=== PATIENT | female | born 1965 | race American Indian/Alaskan Native ===

== ENCOUNTER 2018-11-02 21:27 | Inpatient (IN) | payer MEDICAID ==
--- NOTE | 2018-11-02 21:46 | Emergency Department Report ---
Blank Doc - Documentation Documentation: 53 y/o female c/o sob times 2 day. Hx/o COPD
[2018-11-02 22:19] LABS: Basophils # (Auto) 0.1 K/mm3 (0.0-0.1); Basophils % (Auto) 1.5 % (0.0-1.8); Eosinophils # (Auto) 0.1 K/mm3 (0.0-0.4); Eosinophils % (Auto) 3.2 % (0.0-4.3); Hematocrit 48.4 % (30.3-42.9); Hemoglobin 15.4 gm/dl (10.1-14.3); Lymphocytes # (Auto) 1.7 K/mm3 (1.2-5.4); Lymphocytes % (Auto) 42.8 % (13.4-35.0); Mean Corpuscular HGB Conc 32 % (30-34); Mean Corpuscular Volume 100 fl (79-97); Monocytes # (Auto) 0.3 K/mm3 (0.0-0.8); Monocytes % (Auto) 7.9 % (0.0-7.3); Platelet Count 111 K/mm3 (140-440); Red Blood Count 4.85 M/mm3 (3.65-5.03); Red Cell Distribution Width 15.9 % (13.2-15.2)
--- NOTE | 2018-11-02 22:22 | XRay Report ---
PROCEDURE: XR CHEST ROUTINE 2V TECHNIQUE: PA and lateral chest radiographs were obtained. HISTORY: sob COMPARISONS: Normal 6 2017. FINDINGS: Heart: Grossly cardiomegaly is again noted. Mediastinum/Vessels: Pulmonary venous congestion is identified there are no infiltrates or mass lesio ns. Pleural spaces are clear.. Lungs/Pleural space: Normal. Bony thorax: No acute osseous abnormality. IMPRESSION: Gross cardiomegaly with pulmonary venous congestion No acute pulmonary process. This document is electronically signed by Russell Walters MD., November 02 2018 10:20:54 PM ET
[2018-11-02 22:25] LABS: Alanine Aminotransferase 8 units/L (7-56); Albumin 2.5 g/dL (3.9-5); BUN/Creatinine Ratio 14; Blood Urea Nitrogen 15 mg/dL (7-17); Calcium 8.7 mg/dL (8.4-10.2); Hemolysis Index 46
[2018-11-03] MEDS ORDERED: ROXICODONE ONE (00:40)
[2018-11-03] MEDS ORDERED: LASIX IV ONE (01:07)
[2018-11-03] MEDS ORDERED: APRESOLINE IV ONE (01:07)
[2018-11-03] MEDS ORDERED: K-DUR PO ONE (01:08)
--- NOTE | 2018-11-03 01:09 | Emergency Department Report ---
ED General Adult HPI - General Chief complaint: Dyspnea/Respdistress Stated complaint: SOB,COPD,HIGH B/P, RETAINING WATER Time Seen by Provider: 11/03/18 00:47 Source: patient, RN notes reviewed, old records reviewed Mode of arrival: Ambulatory Limitations: Physical Limitation - History of Present Illness Initial comments: Primary care DrLuis Alberto: Cannot remember the name Pulmonology: Cannot remember the name Cardiology: Dr. Francisco Dove Past medical history: Chronic respiratory failure, COPD, on home oxygen, congestive heart failure, ejection fraction 40-45%, permanent atrial fibrillation, currently on systemic anticoagulation;xarelto This is a 53-year-old female. The patient presents to the emergency room with a complaint of painless shortness of breath and lower extremity swelling. The symptoms; going on for the past few days. They're constant. They worse with physical exertion. The decreased with rest. The patient denies recent travel, surgeries, hospitalization, immobilization. She reports that her symptoms today feel similar to prior episodes of congestive heart failure exacerbation. The patient denies dietary indiscretions. She reports compliance with medications. In the emergency room, found to have crackles, rales, lower extremity edema, jugular venous distention, laboratory and x-ray findings suggestive of congestive heart failure exacerbation. Patient will be admitted to the medical service for blood pressure control, and diuresis. Discussed this with the patient, and she is amenable to hospitalization. Discussed with Hospital physician, Dr. Dove, who has accepted the patient to the medical service. Discussed with covering flow coordinator, Dr. Agnisezka Meier, who agrees to follow in consultation. -: Gradual Location: left, right, lower extremity Radiation: non-radiation Severity scale (0 -10): 0 Consistency: other Improves with: rest Worsens with: movement - Related Data Home Medications Medication Instructions Recorded Confirmed Last Taken ALBUTEROL NEB's [Proventil 0.083% 1 inhalation PRN 01/12/18 11/03/18 05/13/18 05:00 NEBS] Previous Rx's Medication Instructions Recorded Last Taken Type Carvedilol [Coreg] 12.5 mg PO Q12HR #60 tablet 01/14/18 Unknown Rx Furosemide [Lasix TAB] 40 mg PO QDAY #30 tablet 01/14/18 Unknown Rx Levothyroxine [Synthroid] 150 mcg PO QAM #30 tablet 01/14/18 Unknown Rx Lisinopril [Zestril] 40 mg PO DAILY #30 tablet 01/14/18 Unknown Rx Potassium Chloride 10 meq PO QDAY #30 capsule.er 01/14/18 Unknown Rx ProAir HFA Inhaler 2 inhalation PO DAILY #1 01/14/18 Unknown Rx Rivaroxaban [Xarelto] 15 mg PO DAILY #30 tablet 01/14/18 Unknown Rx Simvastatin [Zocor] 40 mg PO DAILY #30 tablet 01/14/18 Unknown Rx ALBUTEROL Inhaler (OR & NICU) 4 puff IH QID PRN #1 inhalation 05/14/18 Unknown Rx [ProAir HFA Inhaler] Allergies Allergy/AdvReac Type Severity Reaction Status Date / Time No Known Allergies Allergy Verified 01/12/18 06:40 ED Review of Systems ROS: Stated complaint: SOB,COPD,HIGH B/P, RETAINING WATER Other details as noted in HPI Constitutional: malaise. denies: fever ENT: congestion Respiratory: shortness of breath, wheezing Cardiovascular: edema. denies: chest pain Gastrointestinal: denies: abdominal pain Genitourinary: denies: dysuria Musculoskeletal: arthralgia Skin: denies: lesions Neurological: weakness Psychiatric: denies: anxiety ED Past Medical Hx - Past Medical History Previous Medical History?: Yes Hx Hypertension: Yes Hx Congestive Heart Failure: Yes Hx COPD: Yes Additional medical history: hyperthyroidism. afib - Surgical History Past Surgical History?: Yes Additional Surgical History: Pericardial window 2003 - Social History Smoking Status: Current Every Day Smoker Substance Use Type: None - Medications Home Medications: Home Medications Medication Instructions Recorded Confirmed Last Taken Type ALBUTEROL NEB's [Proventil 0.083% 1 inhalation PRN 01/12/18 11/03/18 05/13/18 05:00 History NEBS] Carvedilol [Coreg] 12.5 mg PO Q12HR #60 tablet 01/14/18 11/03/18 Unknown Rx Furosemide [Lasix TAB] 40 mg PO QDAY #30 tablet 01/14/18 11/03/18 Unknown Rx Levothyroxine [Synthroid] 150 mcg PO QAM #30 tablet 01/14/18 11/03/18 Unknown Rx Lisinopril [Zestril] 40 mg PO DAILY #30 tablet 01/14/18 11/03/18 Unknown Rx Potassium Chloride 10 meq PO QDAY #30 capsule.er 01/14/18 11/03/18 Unknown Rx ProAir HFA Inhaler 2 inhalation PO DAILY #1 01/14/18 11/03/18 Unknown Rx Rivaroxaban [Xarelto] 15 mg PO DAILY #30 tablet 01/14/18 11/03/18 Unknown Rx Simvastatin [Zocor] 40 mg PO DAILY #30 tablet 01/14/18 11/03/18 Unknown Rx ALBUTEROL Inhaler (OR & NICU) 4 puff IH QID PRN #1 inhalation 05/14/18 11/03/18 Unknown Rx [ProAir HFA Inhaler] ED Physical Exam - General Limitations: No Limitations General appearance: alert, in no apparent distress - Head Head exam: Present: atraumatic, normocephalic - Eye Eye exam: Present: normal appearance, EOMI. Absent: nystagmus - ENT ENT exam: Present: normal exam, normal orophraynx, mucous membranes moist, normal external ear exam - Neck Neck exam: Present: normal inspection, full ROM, other (jugular venous distention is noted bilaterally). Absent: tenderness, meningismus - Respiratory Respiratory exam: Present: respiratory distress, rales - Cardiovascular Cardiovascular Exam: Present: regular rate, irregular rhythm, normal heart sounds. Absent: bradycardia, tachycardia, diastolic murmur, rubs, gallop - GI/Abdominal GI/Abdominal exam: Present: soft. Absent: distended, tenderness, guarding, rebound, rigid, pulsatile mass - Extremities Exam Extremities exam: Present: normal inspection, full ROM, pedal edema, other (2+ pulses noted in the bilateral upper, lower extremities. Compartments soft. No long bony tenderness. The pelvis is stable.). Absent: calf tenderness - Back Exam Back exam: Present: normal inspection, full ROM. Absent: tenderness, CVA tenderness (R), CVA tenderness (L), paraspinal tenderness, vertebral tenderness - Neurological Exam Neurological exam: Present: alert, other (Extraocular movements intact. Tongue midline. No facial droop. Facial sensation intact to light touch in the V1, V2, V3 distribution bilaterally. 5 and 5 strength in 4 extremities.. Sensation is intact to light touch in 4 extremities.). Absent: motor sensory deficit - Psychiatric Psychiatric exam: Present: normal affect, normal mood - Skin Skin exam: Present: warm, dry, intact, normal color. Absent: rash ED Course Vital Signs 11/02/18 11/02/18 11/03/18 21:32 21:41 00:30 Temperature 97.5 F L 97.5 F L 97.8 F Pulse Rate 74 75 76 Respiratory 16 20 22 Rate Blood Pressure 184/127 Blood Pressure 184/127 185/125 [Left] O2 Sat by Pulse 93 93 98 Oximetry 11/03/18 11/03/18 11/03/18 01:00 01:32 01:38 Temperature Pulse Rate 76 76 Respiratory 22 22 Rate Blood Pressure 185/125 Blood Pressure 170/121 [Left] O2 Sat by Pulse 98 98 Oximetry ED Medical Decision Making - Lab Data Result diagrams: 11/02/18 21:55 11/02/18 21:55 Vital Signs 11/02/18 11/02/18 11/03/18 21:32 21:41 00:30 Temperature 97.5 F L 97.5 F L 97.8 F Pulse Rate 74 75 76 Respiratory 16 20 22 Rate Blood Pressure 184/127 Blood Pressure 184/127 185/125 [Left] O2 Sat by Pulse 93 93 98 Oximetry Labs 11/02/18 11/02/18 21:55 21:55 WBC 4.0 L RBC 4.85 Hgb 15.4 H Hct 48.4 H MCV 100 H MCH 32 MCHC 32 RDW 15.9 H Plt Count 111 L Lymph % (Auto) 42.8 H [place] % (Auto) 7.9 H Eos % (Auto) 3.2 Baso % (Auto) 1.5 Lymph # 1.7 [place] # 0.3 Eos # 0.1 Baso # 0.1 Seg Neutrophils % 44.6 Seg Neutrophils # 1.8 Sodium 133 L Potassium 3.4 L Chloride 92.8 L Carbon Dioxide 30 Anion Gap 14 BUN 15 Creatinine 1.1 Estimated GFR > 60 BUN/Creatinine Ratio 14 Glucose 104 H Calcium 8.7 Total Bilirubin 1.30 H AST 24 ALT 8 Alkaline Phosphatase 81 NT-Pro-B Natriuret Pep 4998 H Total Protein 6.2 L Albumin 2.5 L Albumin/Globulin Ratio 0.7 - EKG Data -: EKG Interpreted by Ak - EKG Data When compared to previous EKG there are: no significant change 11/03/18 02:18 This EKG shows atrial fibrillation, left axis deviation, 67 bpm, left anterior fascicular block, QTC prolonged, premature ventricular contractions, left ventricular hypertrophy, this is an abnormal EKG, this is not consistent with ST elevation myocardial infarction, appears to be unchanged from a prior EKG from May 2008 - Radiology Data Radiology results: report reviewed, image reviewed X-ray the chest shows congestive heart failure, pulmonary vascular congestion, enlarged cardiac silhouette - Medical Decision Making Differential diagnosis, including not limited to, congestive heart failure exacerbation, fluid overload Assessment and plan: 53-year-old female on systemic anticoagulation, with physical clinical and laboratory evidence of decompensated congestive heart failure. Requires hospitalization for diuresis, and medication optimization. Critical Care Time: Yes Critical care time in (mins) excluding proc time.: 35 Critical care attestation.: If time is entered above; I have spent that time in minutes in the direct care of this critically ill patient, excluding procedure time. ED Disposition Clinical Impression: CHF exacerbation, Hypokalemia Disposition: OP ADMIT IP TO THIS HOSP Is pt being admited?: Yes Condition: Good Referrals: PRIMARY CARE, [Primary Care Provider] - 3-5 Days
[2018-11-03] MEDS ORDERED: TYLENOL PO PRN (01:53)
[2018-11-03] MEDS ORDERED: SODIUM CHLORIDE FLUSH SYRINGE 10 ML IV PRN (01:53)
[2018-11-03] MEDS ORDERED: ZOFRAN IV PRN (01:53)
[2018-11-03] MEDS ORDERED: PROAIR IH PRN (01:55)
--- NOTE | 2018-11-03 01:55 | History and Physical Report ---
History of Present Illness Date of examination: 11/03/18 History of present illness: 53-year-old woman with a history of CHF, hypertension, COPD, hypothyroidism, A. fib, hyperlipidemia comes emergency room with complaints of shortness of breath, orthopnea, lower extremity edema 2 days. Noncompliant with fluid restriction Review of systems Constitutional: no weight loss, chills, fever Ears, eyes, nose, mouth and throat: no nasal congestion, no nasal discharge, no sinus pressure, no vision change, no red eye. Neck: No neck pain or rigidity. Cardiovascular: no palpitations, chest pain Respiratory: no cough Gastrointestinal: no hematochezia, abdominal pain Genitourinary : no frequency , no hematuria Musculoskeletal: no joint swelling or muscle ache Integumentary: no rash, no pruritis Neurological: no parathesias, no focal weakness Endocrine: no cold or heat intolerance, no polyuria or polydipsia Hematologic/Lymphatic: no easy bruising, no easy bleeding, no gland swelling Allergic/Immunologic: no urticaria, no angioedema. PAST MEDICAL HISTORY:CHF, hypertension, COPD, hypothyroidism, A. fib, hyperlipidemia PAST SURGICAL HISTORY: None SOCIAL HISTORY: Denies alcohol, drugs, tobacco FAMILY HISTORY: Hypertension Medications and Allergies Allergies Allergy/AdvReac Type Severity Reaction Status Date / Time No Known Allergies Allergy Verified 01/12/18 06:40 Home Medications Medication Instructions Recorded Confirmed Last Taken Type Carvedilol [Coreg] 12.5 mg PO Q12HR #60 tablet 01/14/18 11/03/18 Unknown Rx Lisinopril [Zestril] 40 mg PO DAILY #30 tablet 01/14/18 11/03/18 Unknown Rx Potassium Chloride 10 meq PO QDAY #30 capsule.er 01/14/18 11/03/18 Unknown Rx Simvastatin [Zocor] 40 mg PO DAILY #30 tablet 01/14/18 11/03/18 Unknown Rx ALBUTEROL Inhaler (OR & NICU) 4 puff IH QID PRN #1 inhalation 11/05/18 Unknown Rx [ProAir HFA Inhaler] ALBUTEROL NEB's [Proventil 0.083% 2.5 mg IH Q4HRT PRN #30 nebu 11/05/18 Unknown Rx NEBS] Acetaminophen [Acetaminophen TAB] 650 mg PO Q4H PRN #15 tablet 11/05/18 Unknown Rx Aspirin [Aspirin BABY CHEW TAB] 81 mg PO QDAY #20 tab.chew 11/05/18 Unknown Rx Furosemide [Lasix TAB] 40 mg PO BID #60 tablet 11/05/18 Unknown Rx Levothyroxine [Synthroid] 150 mcg PO QAM #30 tablet 11/05/18 Unknown Rx Potassium Chloride [K-Dur] 40 meq PO DAILY #30 tablet 11/05/18 Unknown Rx Rivaroxaban [Xarelto] 15 mg PO DAILY #30 tablet 11/05/18 Unknown Rx Spironolactone [Aldactone] 25 mg PO QDAY #30 tablet 11/05/18 Unknown Rx hydrALAZINE [Apresoline TAB] 25 mg PO Q8HR #30 tablet 11/05/18 Unknown Rx Exam - Physical Exam Narrative exam: General Apperance: The patient lying in bed, breathing comfortable HEENT: Normocephalic, atraumatic. Pupils equally round and reactive to light, EOMI, no sclericterus or JVD or thyromegaly or nodule. , no carotid bruit, mucous membranes moist, no exudate or erythema Heart: S1-S2, regular is rhythm Lungs: Crackles bilaterally, breathing comfortable Abdomen: Positive bowel sounds, soft, nontender, nondistended, no organomegaly Extremities: + edema, no cyanosis clubbing Skin: no rash, nodule, warm and dry Neuro: cranial nerves 2-12 intact, speech is fluent, motor/sensory intact - Constitutional Vitals: Temp Pulse Resp BP Pulse Ox 97.8 F 76 22 170/121 98 11/03/18 00:30 11/03/18 01:38 11/03/18 01:38 11/03/18 01:38 11/03/18 01:38 Results - Labs CBC & Chem 7: 11/05/18 06:03 11/05/18 06:03 Labs: Abnormal lab results 11/02/18 11/02/18 Range/Units 21:55 21:55 WBC 4.0 L (4.5-11.0) K/mm3 Hgb 15.4 H (10.1-14.3) gm/dl Hct 48.4 H (30.3-42.9) % MCV 100 H (79-97) fl RDW 15.9 H (13.2-15.2) % Plt Count 111 L (140-440) K/mm3 Lymph % (Auto) 42.8 H (13.4-35.0) % [place] % (Auto) 7.9 H (0.0-7.3) % Sodium 133 L (137-145) mmol/L Potassium 3.4 L (3.6-5.0) mmol/L Chloride 92.8 L (98-107) mmol/L Glucose 104 H (65-100) mg/dL Total Bilirubin 1.30 H (0.1-1.2) mg/dL NT-Pro-B Natriuret Pep 4998 H (0-900) pg/mL Total Protein 6.2 L (6.3-8.2) g/dL Albumin 2.5 L (3.9-5) g/dL - Imaging and Cardiology EKG: image reviewed Chest x-ray: report reviewed Assessment and Plan Assessment Acute on chronic diastolic CHF Hypertension COPD Hypothyroidism A. fib Hyperlipidemia Plan Admit to medicine Day received IV Lasix Continue beta ave, ARIANNA inhibitor, aspirin Check cardiac enzymes, echo, consult cardiology Continue Procrit outpatient medications DVT prophylaxis /xarelto
[2018-11-03] MEDS ORDERED: HABITROL TD ONE (01:57)
[2018-11-03] MEDS ORDERED: PROVENTIL IH PRN (02:12)
[2018-11-03 02:39] LABS: INR 1.18 (0.87-1.13)
[2018-11-03 02:40] LABS: Partial Thromboplastin Time 30.1 Sec. (24.2-36.6)
[2018-11-03 02:46] LABS: Creatine Kinase MB 3.3 ng/mL (0.0-4.0)
[2018-11-03 03:17] LABS: Chol/HDL Ratio 3.04 %
[2018-11-03] MEDS: SYNTHROID PO SCH (06:16)
[2018-11-03] MEDS: LASIX IV SCH ×2 (06:22→17:58)
[2018-11-03 08:23] LABS: Creatine Kinase MB 4.4 ng/mL (0.0-4.0)
[2018-11-03] MEDS: PROVENTIL IH SCH ×2 (08:37→12:32)
--- NOTE | 2018-11-03 09:40 | Consultation ---
History of Present Illness Consult date: 11/03/18 Consult reason: congestive heart failure History of present illness: This is a 53 year old woman with a history of nonischemic cardiomyopathy dating back to 2 years ago while living in [place]. She is followed on a routine basis by Dr Francisco Dove with [facility]. Her latest echocardiogram done within the last year reports an ejection fraction 40-45%. She has permanent atrial fibrillation and is anticoagulated with Xarelto for CVA prophylaxis. Co- morbidities includes hypertension and COPD. Patient presented with complaints of shortness of breath, lower extremity edema admitted with CHF exacerbation. Patient admits to dietary indiscretions. She has no chest pain, dizziness or palpitations. Her ECG is atrial fibrillation with a well controlled ventricular rate. Cardiac consultation has been requested for CHF management. Medications and Allergies Allergies Allergy/AdvReac Type Severity Reaction Status Date / Time No Known Allergies Allergy Verified 01/12/18 06:40 Home Medications Medication Instructions Recorded Confirmed Last Taken Type ALBUTEROL NEB's [Proventil 0.083% 1 inhalation PRN 01/12/18 11/03/18 05/13/18 05:00 History NEBS] Carvedilol [Coreg] 12.5 mg PO Q12HR #60 tablet 01/14/18 11/03/18 Unknown Rx Furosemide [Lasix TAB] 40 mg PO QDAY #30 tablet 01/14/18 11/03/18 Unknown Rx Levothyroxine [Synthroid] 150 mcg PO QAM #30 tablet 01/14/18 11/03/18 Unknown Rx Lisinopril [Zestril] 40 mg PO DAILY #30 tablet 01/14/18 11/03/18 Unknown Rx Potassium Chloride 10 meq PO QDAY #30 capsule.er 01/14/18 11/03/18 Unknown Rx ProAir HFA Inhaler 2 inhalation PO DAILY #1 01/14/18 11/03/18 Unknown Rx Rivaroxaban [Xarelto] 15 mg PO DAILY #30 tablet 01/14/18 11/03/18 Unknown Rx Simvastatin [Zocor] 40 mg PO DAILY #30 tablet 01/14/18 11/03/18 Unknown Rx ALBUTEROL Inhaler (OR & NICU) 4 puff IH QID PRN #1 inhalation 05/14/18 11/03/18 Unknown Rx [ProAir HFA Inhaler] Active Meds: Active Medications Acetaminophen (Tylenol) 650 mg PO Q4H PRN PRN Reason: Pain MILD(1-3)/Fever >100.5/JEFFERS Albuterol (Proventil) 2.5 mg IH Q4HRT PRN PRN Reason: Shortness Of Breath Albuterol (Proventil) 2.5 mg IH DAILY [facility] Last Admin: 11/03/18 08:37 Dose: 2.5 mg Documented by: Aspirin (Baby Aspirin) 81 mg PO QDAY [facility] Carvedilol (Coreg) 12.5 mg PO Q12HR [facility] Furosemide (Lasix) 40 mg IV BID@0600,1800 [facility] Last Admin: 11/03/18 06:22 Dose: 40 mg Documented by: Hydralazine HCl (Apresoline) 10 mg IV Q4H PRN PRN Reason: Blood Pressure Levothyroxine Sodium (Synthroid) 150 mcg PO QAM@0600 [facility] Last Admin: 11/03/18 06:16 Dose: 150 mcg Documented by: Lisinopril (Zestril) 40 mg PO DAILY [facility] Ondansetron HCl (Zofran) 4 mg IV Q8H PRN PRN Reason: Nausea And Vomiting Pravastatin Sodium (Pravachol) 80 mg PO QHS [facility] Rivaroxaban (Xarelto) 15 mg PO DAILY [facility]; Protocol Sodium Chloride (Sodium Chloride Flush Syringe 10 Ml) 10 ml IV BID [facility] Sodium Chloride (Sodium Chloride Flush Syringe 10 Ml) 10 ml IV PRN PRN PRN Reason: LINE FLUSH Physical Examination Vital Signs Temp Pulse Resp BP Pulse Ox 97.5 F L 74 16 184/127 93 11/02/18 21:32 11/02/18 21:32 11/02/18 21:32 11/02/18 21:32 11/02/18 21:32 General appearance: no acute distress HEENT: Positive: PERRL Neck: Positive: trachea midline Cardiac: Positive: irregularly irregular Lungs: Positive: Decreased Breath Sounds Neuro: Positive: Grossly Intact Extremities: Present: +2 Edema Results 11/02/18 21:55 11/02/18 21:55 Cardiac Enzymes 11/02/18 11/03/18 11/03/18 Range/Units 21:55 02:02 07:54 AST 24 (5-40) units/L CK-MB (CK-2) 3.3 4.4 H (0.0-4.0) ng/mL Coagulation 11/03/18 Range/Units 02:02 PT 15.8 H (12.2-14.9) Sec. INR 1.18 H (0.87-1.13) APTT 30.1 (24.2-36.6) Sec. Lipids 11/03/18 Range/Units 02:02 Triglycerides 146 (2-149) mg/dL Cholesterol 131 (50-199) mg/dL HDL Cholesterol 43 (40-59) mg/dL Cholesterol/HDL Ratio 3.04 % CBC 11/02/18 Range/Units 21:55 WBC 4.0 L (4.5-11.0) K/mm3 RBC 4.85 (3.65-5.03) M/mm3 Hgb 15.4 H (10.1-14.3) gm/dl Hct 48.4 H (30.3-42.9) % Plt Count 111 L (140-440) K/mm3 Lymph # 1.7 (1.2-5.4) K/mm3 [place] # 0.3 (0.0-0.8) K/mm3 Eos # 0.1 (0.0-0.4) K/mm3 Baso # 0.1 (0.0-0.1) K/mm3 Comprehensive Metabolic Panel 11/02/18 Range/Units 21:55 Sodium 133 L (137-145) mmol/L Potassium 3.4 L (3.6-5.0) mmol/L Chloride 92.8 L (98-107) mmol/L Carbon Dioxide 30 (22-30) mmol/L BUN 15 (7-17) mg/dL Creatinine 1.1 (0.7-1.2) mg/dL Glucose 104 H (65-100) mg/dL Calcium 8.7 (8.4-10.2) mg/dL AST 24 (5-40) units/L ALT 8 (7-56) units/L Alkaline Phosphatase 81 (35-129) units/L Total Protein 6.2 L (6.3-8.2) g/dL Albumin 2.5 L (3.9-5) g/dL Assessment and Plan Acute systolic heart failure s/t noncompliance with dietary indiscretions Nonischemic cardiomyopathy pt reports a [facility] 2018 while living in [facility], that did not require coronary intervention Chronic Afib on xarelto for oral anticoagulation Hx of COPD Hypertension Tobacco abuse Recommendations: Sodium/fluid restrictions. Daily weight. Echocardiogram for LVEF reassessment. Medical therapy for systolic heart failure to include IV diuretics, afterload reduction agents, beta blockers and aldactone. Continue rate controlling agents and Xarelto for permanent atrial fibrillation.
[2018-11-03] MEDS ORDERED: NON-FORMULARY (Simvastatin [Zocor] 40 MG) PO SCH (10:00)
[2018-11-03] MEDS ORDERED: LOVENOX SUB-Q SCH (10:00)
[2018-11-03] MEDS ORDERED: PROAIR PO SCH (10:00)
[2018-11-03] MEDS: BABY ASPIRIN PO SCH (10:13)
[2018-11-03] MEDS: XARELTO PO SCH (10:13)
[2018-11-03] MEDS: SODIUM CHLORIDE FLUSH SYRINGE 10 ML IV SCH ×2 (10:18→22:03)
[2018-11-03] MEDS: COREG PO SCH ×2 (10:20→22:01)
[2018-11-03] MEDS: ZESTRIL PO SCH (10:20)
[2018-11-03] MEDS: ALDACTONE PO SCH (11:00)
--- NOTE | 2018-11-03 11:14 | Progress Note ---
<SHANIA SEALS - Last Filed: 11/03/18 11:14> Assessment and Plan Assessment and plan: Ms. Barrera is 53 year old -[place] woman with history of systolic heart failure, nonischemic cardiomyopath, hypertension, COPD, hypothyroidism, A. fibrate controlled on Xarelto, and hyperlipidemia who presented to [facility] ED on 11/02 with c/o shortness of breath, orthopnea, lower extremity edema 2 days. She is followed on a routine basis by Dr Francisco Dove with [facility]. Her most recent echocardiogram done within the last year reports ejection fraction 40-45%. She was admitted to the Telemetry floor. Acute exacerbation of systolic heart failure Continue diuresis with IV Lasix 40mg BID Start Potassium replace 40Meq daily Monitor electrolytes Echo- pending Cardiology following Follows Dr Francisco Dove with [facility] as outpatient Nonischemic cardiomyopathy pt reports a [facility] 2018 while living in [facility]; no coronary intervention was re quired Follows Dr Francisco Dove with [facility] as outpatient Atrial fibrillation Rate controlled on Xarelto Follows Dr Francisco Dove with [facility] as outpatient Hypertension Monitor BP On Coreg 12.5 BID, and Aldactone 25mg daily Hx COPD Albuterol nebs prn Hypothyroidism On Synthroid 150mcg daily TSH and Free T4- pending Tobacco abuse Continue to encourage cessation On nicotine patch DVT PPX AC Xarelto History Interval history: Ms. Barrera is seen today on the Telemetry floor. Pt reports that her breathing and edema has slightly improved. There were no acute overnight events. Hospitalist Physical - Constitutional Vitals: Temp Pulse Resp BP Pulse Ox 98.2 F 60 20 170/108 92 11/03/18 08:16 11/03/18 11:00 11/03/18 08:15 11/03/18 11:00 11/03/18 08:15 General appearance: Present: no acute distress, mild distress - EENT Eyes: Present: PERRL, EOM intact ENT: hearing intact, clear oral mucosa, dentition normal - Neck Neck: Present: supple, normal ROM - Respiratory Respiratory effort: labored Respiratory: bilateral: rales (scattered crackles to base bilaterally) - Cardiovascular Heart rate: 60 (bpm) Rhythm: irregularly irregular Heart Sounds: Present: S1 & S2 - Extremities Extremities: pulses intact Extremity abnormal: edema - Peripheral Assessment Bilateral Lower Extremity Edema Degree: 2+ Capillary Refill: < 3 seconds Skin Temperature: Warm Peripheral Pulses: within normal limits - Abdominal General gastrointestinal: soft, non-tender, normal bowel sounds - Integumentary Integumentary: Present: warm, dry - Psychiatric Psychiatric: appropriate mood/affect, cooperative - Neurologic Neurologic: moves all extremities - Allied Health Allied health notes reviewed: nursing Results - Labs CBC & Chem 7: 11/02/18 21:55 11/02/18 21:55 Labs: Laboratory Last Values WBC 4.0 K/mm3 (4.5-11.0) L 11/02/18 21:55 RBC 4.85 M/mm3 (3.65-5.03) 11/02/18 21:55 Hgb 15.4 gm/dl (10.1-14.3) H 11/02/18 21:55 Hct 48.4 % (30.3-42.9) H 11/02/18 21:55 MCV 100 fl (79-97) H 11/02/18 21:55 MCH 32 pg (28-32) 11/02/18 21:55 MCHC 32 % (30-34) 11/02/18 21:55 RDW 15.9 % (13.2-15.2) H 11/02/18 21:55 Plt Count 111 K/mm3 (140-440) L 11/02/18 21:55 Lymph % (Auto) 42.8 % (13.4-35.0) H 11/02/18 21:55 [place] % (Auto) 7.9 % (0.0-7.3) H 11/02/18 21:55 Eos % (Auto) 3.2 % (0.0-4.3) 11/02/18 21:55 Baso % (Auto) 1.5 % (0.0-1.8) 11/02/18 21:55 Lymph # 1.7 K/mm3 (1.2-5.4) 11/02/18 21:55 [place] # 0.3 K/mm3 (0.0-0.8) 11/02/18 21:55 Eos # 0.1 K/mm3 (0.0-0.4) 11/02/18 21:55 Baso # 0.1 K/mm3 (0.0-0.1) 11/02/18 21:55 Seg Neutrophils % 44.6 % (40.0-70.0) 11/02/18 21:55 Seg Neutrophils # 1.8 K/mm3 (1.8-7.7) 11/02/18 21:55 PT 15.8 Sec. (12.2-14.9) H 11/03/18 02:02 INR 1.18 (0.87-1.13) H 11/03/18 02:02 APTT 30.1 Sec. (24.2-36.6) 11/03/18 02:02 Sodium 133 mmol/L (137-145) L 11/02/18 21:55 Potassium 3.4 mmol/L (3.6-5.0) L 11/02/18 21:55 Chloride 92.8 mmol/L (98-107) L 11/02/18 21:55 Carbon Dioxide 30 mmol/L (22-30) 11/02/18 21:55 Anion Gap 14 mmol/L 11/02/18 21:55 BUN 15 mg/dL (7-17) 11/02/18 21:55 Creatinine 1.1 mg/dL (0.7-1.2) 11/02/18 21:55 Estimated GFR > 60 ml/min 11/02/18 21:55 BUN/Creatinine Ratio 14 % 11/02/18 21:55 Glucose 104 mg/dL (65-100) H 11/02/18 21:55 Calcium 8.7 mg/dL (8.4-10.2) 11/02/18 21:55 Magnesium 1.70 mg/dL (1.7-2.3) 11/03/18 02:02 Total Bilirubin 1.30 mg/dL (0.1-1.2) H 11/02/18 21:55 AST 24 units/L (5-40) 11/02/18 21:55 ALT 8 units/L (7-56) 11/02/18 21:55 Alkaline Phosphatase 81 units/L (35-129) 11/02/18 21:55 Total Creatine Kinase 126 units/L (30-135) 11/03/18 07:54 CK-MB (CK-2) 4.4 ng/mL (0.0-4.0) H 11/03/18 07:54 CK-MB (CK-2) Rel Index 3.4 (0-4) 11/03/18 07:54 Troponin T 0.022 ng/mL (0.00-0.029) 11/03/18 07:54 NT-Pro-B Natriuret Pep 4998 pg/mL (0-900) H 11/02/18 21:55 Total Protein 6.2 g/dL (6.3-8.2) L 11/02/18 21:55 Albumin 2.5 g/dL (3.9-5) L 11/02/18 21:55 Albumin/Globulin Ratio 0.7 % 11/02/18 21:55 Triglycerides 146 mg/dL (2-149) 11/03/18 02:02 Cholesterol 131 mg/dL (50-199) 11/03/18 02:02 LDL Cholesterol Direct 75 mg/dL (50-130) 11/03/18 02:02 HDL Cholesterol 43 mg/dL (40-59) 11/03/18 02:02 Cholesterol/HDL Ratio 3.04 % 11/03/18 02:02 Short CBC 11/02/18 Range/Units 21:55 WBC 4.0 L (4.5-11.0) K/mm3 Hgb 15.4 H (10.1-14.3) gm/dl Hct 48.4 H (30.3-42.9) % Plt Count 111 L (140-440) K/mm3 BMP 11/02/18 21:55 Sodium 133 L Potassium 3.4 L Chloride 92.8 L Carbon Dioxide 30 BUN 15 Creatinine 1.1 Glucose 104 H Calcium 8.7 Cardiac Enzymes 11/03/18 11/03/18 Range/Units 02:02 07:54 Total Creatine Kinase 116 126 (30-135) units/L CK-MB (CK-2) 3.3 4.4 H (0.0-4.0) ng/mL Troponin T 0.031 H 0.022 (0.00-0.029) ng/mL Liver Function 11/02/18 Range/Units 21:55 Total Bilirubin 1.30 H (0.1-1.2) mg/dL AST 24 (5-40) units/L ALT 8 (7-56) units/L Alkaline Phosphatase 81 (35-129) units/L Albumin 2.5 L (3.9-5) g/dL Active Medications - Current Medications Current Medications: Generic Name Dose Route Start Last Admin Trade Name Freq PRN Reason Stop Dose Admin Acetaminophen 650 mg 11/03/18 01:53 Tylenol PO Q4H PRN Pain MILD(1-3)/Fever >100.5/JEFFERS Albuterol 2.5 mg 11/03/18 02:12 Proventil IH Q4HRT PRN Shortness Of Breath Albuterol 2.5 mg 11/03/18 10:00 11/03/18 08:37 Proventil IH 2.5 mg DAILY ELÍAS Administration Aspirin 81 mg 11/03/18 10:00 11/03/18 10:13 Baby Aspirin PO 81 mg QDAY ELÍAS Administration Carvedilol 12.5 mg 11/03/18 10:00 11/03/18 10:20 Coreg PO 12.5 mg Q12HR ELAÍS Administration Furosemide 40 mg 11/03/18 06:00 11/03/18 06:22 Lasix IV 40 mg BID@0600,1800 ELÍAS Administration Hydralazine HCl 10 mg 11/03/18 08:49 Apresoline IV Q4H PRN Blood Pressure Levothyroxine Sodium 150 mcg 11/03/18 06:00 11/03/18 06:16 Synthroid PO 150 mcg QAM@0600 ELÍAS Administration Lisinopril 40 mg 11/03/18 10:00 11/03/18 10:20 Zestril PO 40 mg DAILY ELÍSA Administration Ondansetron HCl 4 mg 11/03/18 01:53 Zofran IV Q8H PRN Nausea And Vomiting Pravastatin Sodium 80 mg 11/03/18 22:00 Pravachol PO QHS ELÍAS Rivaroxaban 15 mg 11/03/18 10:00 11/03/18 10:13 Xarelto PO 15 mg DAILY ELÍSA Administration Protocol Sodium Chloride 10 ml 11/03/18 10:00 11/03/18 10:18 Sodium Chloride Flush Syringe 10 Ml IV 10 ml BID ELÍAS Administration Sodium Chloride 10 ml 11/03/18 01:53 Sodium Chloride Flush Syringe 10 Ml IV PRN PRN LINE FLUSH Spironolactone 25 mg 11/03/18 11:00 11/03/18 11:00 Aldactone PO 25 mg QDAY ELÍAS Administration <BEATRIZ CLEARY R - Last Filed: 11/03/18 13:13> Assessment and Plan Assessment and plan: I saw and evaluated the patient. I agree with the findings and the plan of care as documented in the Nurse Practitioner's~note, with the following corrections and additions. Hospitalist Physical - Constitutional Vitals: Temp Pulse Resp BP Pulse Ox 98.2 F 60 20 170/108 92 11/03/18 08:16 11/03/18 11:00 11/03/18 08:47 11/03/18 11:00 11/03/18 08:37 Results - Labs CBC & Chem 7: 11/02/18 21:55 11/02/18 21:55 Labs: Laboratory Last Values WBC 4.0 K/mm3 (4.5-11.0) L 11/02/18 21:55 RBC 4.85 M/mm3 (3.65-5.03) 11/02/18 21:55 Hgb 15.4 gm/dl (10.1-14.3) H 11/02/18 21:55 Hct 48.4 % (30.3-42.9) H 11/02/18 21:55 MCV 100 fl (79-97) H 11/02/18 21:55 MCH 32 pg (28-32) 11/02/18 21:55 MCHC 32 % (30-34) 11/02/18 21:55 RDW 15.9 % (13.2-15.2) H 11/02/18 21:55 Plt Count 111 K/mm3 (140-440) L 11/02/18 21:55 Lymph % (Auto) 42.8 % (13.4-35.0) H 11/02/18 21:55 [place] % (Auto) 7.9 % (0.0-7.3) H 11/02/18 21:55 Eos % (Auto) 3.2 % (0.0-4.3) 11/02/18 21:55 Baso % (Auto) 1.5 % (0.0-1.8) 11/02/18 21:55 Lymph # 1.7 K/mm3 (1.2-5.4) 11/02/18 21:55 [place] # 0.3 K/mm3 (0.0-0.8) 11/02/18 21:55 Eos # 0.1 K/mm3 (0.0-0.4) 11/02/18 21:55 Baso # 0.1 K/mm3 (0.0-0.1) 11/02/18 21:55 Seg Neutrophils % 44.6 % (40.0-70.0) 11/02/18 21:55 Seg Neutrophils # 1.8 K/mm3 (1.8-7.7) 11/02/18 21:55 PT 15.8 Sec. (12.2-14.9) H 11/03/18 02:02 INR 1.18 (0.87-1.13) H 11/03/18 02:02 APTT 30.1 Sec. (24.2-36.6) 11/03/18 02:02 Sodium 133 mmol/L (137-145) L 11/02/18 21:55 Potassium 3.4 mmol/L (3.6-5.0) L 11/02/18 21:55 Chloride 92.8 mmol/L (98-107) L 11/02/18 21:55 Carbon Dioxide 30 mmol/L (22-30) 11/02/18 21:55 Anion Gap 14 mmol/L 11/02/18 21:55 BUN 15 mg/dL (7-17) 11/02/18 21:55 Creatinine 1.1 mg/dL (0.7-1.2) 11/02/18 21:55 Estimated GFR > 60 ml/min 11/02/18 21:55 BUN/Creatinine Ratio 14 % 11/02/18 21:55 Glucose 104 mg/dL (65-100) H 11/02/18 21:55 Calcium 8.7 mg/dL (8.4-10.2) 11/02/18 21:55 Magnesium 1.70 mg/dL (1.7-2.3) 11/03/18 02:02 Total Bilirubin 1.30 mg/dL (0.1-1.2) H 11/02/18 21:55 AST 24 units/L (5-40) 11/02/18 21:55 ALT 8 units/L (7-56) 11/02/18 21:55 Alkaline Phosphatase 81 units/L (35-129) 11/02/18 21:55 Total Creatine Kinase 126 units/L (30-135) 11/03/18 07:54 CK-MB (CK-2) 4.4 ng/mL (0.0-4.0) H 11/03/18 07:54 CK-MB (CK-2) Rel Index 3.4 (0-4) 11/03/18 07:54 Troponin T 0.022 ng/mL (0.00-0.029) 11/03/18 07:54 NT-Pro-B Natriuret Pep 4998 pg/mL (0-900) H 11/02/18 21:55 Total Protein 6.2 g/dL (6.3-8.2) L 11/02/18 21:55 Albumin 2.5 g/dL (3.9-5) L 11/02/18 21:55 Albumin/Globulin Ratio 0.7 % 11/02/18 21:55 Triglycerides 146 mg/dL (2-149) 11/03/18 02:02 Cholesterol 131 mg/dL (50-199) 11/03/18 02:02 LDL Cholesterol Direct 75 mg/dL (50-130) 11/03/18 02:02 HDL Cholesterol 43 mg/dL (40-59) 11/03/18 02:02 Cholesterol/HDL Ratio 3.04 % 11/03/18 02:02 Active Medications - Current Medications Current Medications: Generic Name Dose Route Start Last Admin Trade Name Freq PRN Reason Stop Dose Admin Acetaminophen 650 mg 11/03/18 01:53 Tylenol PO Q4H PRN Pain MILD(1-3)/Fever >100.5/JEFFERS Albuterol 2.5 mg 11/03/18 02:12 Proventil IH Q4HRT PRN Shortness Of Breath Albuterol 2.5 mg 11/03/18 10:00 11/03/18 12:32 Proventil IH Not Given DAILY ELÍAS Aspirin 81 mg 11/03/18 10:00 11/03/18 10:13 Baby Aspirin PO 81 mg QDAY ELÍAS Administration Carvedilol 12.5 mg 11/03/18 10:00 11/03/18 10:20 Coreg PO 12.5 mg Q12HR ELÍAS Administration Furosemide 40 mg 11/03/18 06:00 11/03/18 06:22 Lasix IV 40 mg BID@0600,1800 ELÍAS Administration Hydralazine HCl 10 mg 11/03/18 08:49 Apresoline IV Q4H PRN Blood Pressure Levothyroxine Sodium 150 mcg 11/03/18 06:00 11/03/18 06:16 Synthroid PO 150 mcg QAM@0600 ELÍAS Administration Lisinopril 40 mg 11/03/18 10:00 11/03/18 10:20 Zestril PO 40 mg DAILY ELÍAS Administration Ondansetron HCl 4 mg 11/03/18 01:53 Zofran IV Q8H PRN Nausea And Vomiting Potassium Chloride 40 meq 11/03/18 12:00 K-Dur PO DAILY [facility] Pravastatin Sodium 80 mg 11/03/18 22:00 Pravachol PO QHS ELÍAS Rivaroxaban 15 mg 11/03/18 10:00 11/03/18 10:13 Xarelto PO 15 mg DAILY ELÍAS Administration Protocol Sodium Chloride 10 ml 11/03/18 10:00 11/03/18 10:18 Sodium Chloride Flush Syringe 10 Ml IV 10 ml BID ELÍAS Administration Sodium Chloride 10 ml 11/03/18 01:53 Sodium Chloride Flush Syringe 10 Ml IV PRN PRN LINE FLUSH Spironolactone 25 mg 11/03/18 11:00 11/03/18 11:00 Aldactone PO 25 mg QDAY ELÍAS Administration
[2018-11-03] MEDS: K-DUR PO SCH (15:45)
[2018-11-03] MEDS: PRAVACHOL PO SCH (22:01)
[2018-11-04] MEDS: SYNTHROID PO SCH (05:33)
[2018-11-04] MEDS: LASIX IV SCH ×2 (05:34→17:28)
[2018-11-04 06:25] LABS: Basophils % (Auto) 0.6 % (0.0-1.8); Eosinophils # (Auto) 0.2 K/mm3 (0.0-0.4); Eosinophils % (Auto) 4.3 % (0.0-4.3); Hematocrit 49.1 % (30.3-42.9); Hemoglobin 15.7 gm/dl (10.1-14.3); Lymphocytes # (Auto) 1.5 K/mm3 (1.2-5.4); Lymphocytes % (Auto) 38.4 % (13.4-35.0); Mean Corpuscular HGB Conc 32 % (30-34); Mean Corpuscular Volume 99 fl (79-97); Monocytes # (Auto) 0.3 K/mm3 (0.0-0.8); Monocytes % (Auto) 8.6 % (0.0-7.3); Platelet Count 116 K/mm3 (140-440); Red Blood Count 4.99 M/mm3 (3.65-5.03); Red Cell Distribution Width 15.8 % (13.2-15.2)
[2018-11-04 06:41] LABS: BUN/Creatinine Ratio 16; Blood Urea Nitrogen 14 mg/dL (7-17); Calcium 8.8 mg/dL (8.4-10.2); Hemolysis Index 29
[2018-11-04] MEDS: PROVENTIL IH SCH ×2 (07:55→11:14)
[2018-11-04] MEDS: ALDACTONE PO SCH (09:13)
[2018-11-04] MEDS: BABY ASPIRIN PO SCH (09:13)
[2018-11-04] MEDS: COREG PO SCH ×2 (09:14→22:10)
[2018-11-04] MEDS: ZESTRIL PO SCH (09:14)
[2018-11-04] MEDS: XARELTO PO SCH (09:14)
[2018-11-04] MEDS: K-DUR PO SCH (09:15)
[2018-11-04] MEDS: SODIUM CHLORIDE FLUSH SYRINGE 10 ML IV SCH ×2 (09:16→22:10)
--- NOTE | 2018-11-04 09:55 | Progress Note ---
Assessment and Plan Acute systolic heart failure s/t noncompliance with dietary indiscretions Nonischemic cardiomyopathy pt reports a [facility] 2018 while living in [facility], that did not require coronary intervention Chronic Afib on xarelto for oral anticoagulation Hx of COPD Hypertension Tobacco abuse An echocardiogram this admission reports a dilated left and right atria with moderate to severe TR and pulmonary hypertension, RVSP of 52 mmHg. Left ventricular function decreased, EF 30-35%. Recommendations: Sodium/fluid restrictions. Daily weight. Continue medical therapy for systolic heart failure and permanent atrial fibrillation. Subjective Date of service: 11/04/18 Interval history: Patient reports her breathing is better. Patient admits she is diuresing well. Objective Vital Signs Temp Pulse Pulse Resp Resp BP Pulse Ox 11/04/18 09:14 69 183/108 11/04/18 09:13 69 183/108 11/04/18 08:10 183/108 11/04/18 08:09 97.6 F 69 18 191/110 92 11/04/18 08:05 85 18 11/04/18 07:56 84 18 95 11/04/18 00:10 98.1 F 73 18 177/102 84 11/03/18 20:22 60 11/03/18 16:00 18 11/03/18 11:00 60 170/108 11/03/18 10:20 60 170/108 - Physical Examination General: No Apparent Distress HEENT: Positive: PERRL Neck: Positive: trachea midline Cardiac: Positive: irregularly irregular Lungs: Positive: Decreased Breath Sounds Neuro: Positive: Grossly Intact Extremities: Present: +1 Edema - Labs and Meds CBC 11/04/18 Range/Units 05:33 WBC 4.0 L (4.5-11.0) K/mm3 RBC 4.99 (3.65-5.03) M/mm3 Hgb 15.7 H (10.1-14.3) gm/dl Hct 49.1 H (30.3-42.9) % Plt Count 116 L (140-440) K/mm3 Lymph # 1.5 (1.2-5.4) K/mm3 [place] # 0.3 (0.0-0.8) K/mm3 Eos # 0.2 (0.0-0.4) K/mm3 Baso # 0.0 (0.0-0.1) K/mm3 Comprehensive Metabolic Panel 04/30/19 Range/Units 05:33 Sodium 143 D (137-145) mmol/L Potassium 3.7 (3.6-5.0) mmol/L Chloride 92.0 L (98-107) mmol/L Carbon Dioxide 38 H D (22-30) mmol/L BUN 14 (7-17) mg/dL Creatinine 0.9 (0.7-1.2) mg/dL Glucose 90 (65-100) mg/dL Calcium 8.8 (8.4-10.2) mg/dL
--- NOTE | 2018-11-04 11:25 | Progress Note ---
Assessment and Plan Assessment and plan: Ms. Barrera is 53 year old -[place] woman with history of systolic heart failure, nonischemic cardiomyopath, hypertension, COPD, hypothyroidism, A. fibrate controlled on Xarelto, and hyperlipidemia who presented to [facility] ED on 11/02 with c/o shortness of breath, orthopnea, lower extremity edema 2 days. She is followed on a routine basis by Dr Francisco Dove with [facility]. Her most recent echocardiogram done within the last year reports ejection fraction 40-45%. She was admitted to the Telemetry floor. Acute exacerbation of systolic heart failure Continue anti-failure medications, diuretics, beta blockers Juan inhibitors, low sodium diet, fluid restriction, input output monitoring And potassium, Echo-30-35% Cardiology following Nonischemic cardiomyopathy pt reports a [facility] 2018 while living in [facility]; no coronary intervention was required Atrial fibrillation Continue beta blockers ,Rate controlled Chronic anticoagulation on Xarelto Hypertension Monitor BP On Coreg 12.5 BID, and Aldactone 25mg daily Hx COPD Albuterol nebs prn Hypothyroidism On Synthroid 150mcg daily TSH and Free T4- pending Tobacco abuse Smoking cessation counseling and nicotine patch DVT PPX AC Xarelto Monitor closely and adjust the management as needed Plan of care reviewed with the patient and her nurse possible discharge in 1-2 days if stable History Interval history: Patient seen and examined medical records reviewed Admitted with acute on chronic systolic congestive heart failure On anti-failure medications, mild improvement of symptoms Alert awake oriented 3 Vital signs reviewed Hospitalist Physical - Constitutional Vitals: Temp Pulse Resp BP Pulse Ox 97.6 F 69 18 183/108 92 11/04/18 08:09 11/04/18 09:14 11/04/18 08:09 11/04/18 09:14 11/04/18 08:09 General appearance: Present: no acute distress, mild distress - EENT Eyes: Present: PERRL, EOM intact - Neck Neck: Present: supple, normal ROM - Respiratory Respiratory effort: normal Respiratory: bilateral: diminished, rales, negative: rhonchi, wheezing - Cardiovascular Rhythm: regular Heart Sounds: Present: S1 & S2 - Extremities Extremities: no ischemia, No edema - Abdominal General gastrointestinal: soft, non-tender, non-distended, normal bowel sounds - Integumentary Integumentary: Present: clear, warm - Psychiatric Psychiatric: appropriate mood/affect, cooperative - Neurologic Neurologic: moves all extremities Results - Labs CBC & Chem 7: 11/04/18 05:33 11/04/18 05:33 Labs: Laboratory Last Values WBC 4.0 K/mm3 (4.5-11.0) L 11/04/18 05:33 RBC 4.99 M/mm3 (3.65-5.03) 11/04/18 05:33 Hgb 15.7 gm/dl (10.1-14.3) H 11/04/18 05:33 Hct 49.1 % (30.3-42.9) H 11/04/18 05:33 MCV 99 fl (79-97) H 11/04/18 05:33 MCH 32 pg (28-32) 11/04/18 05:33 MCHC 32 % (30-34) 11/04/18 05:33 RDW 15.8 % (13.2-15.2) H 11/04/18 05:33 Plt Count 116 K/mm3 (140-440) L 11/04/18 05:33 Lymph % (Auto) 38.4 % (13.4-35.0) H 11/04/18 05:33 [place] % (Auto) 8.6 % (0.0-7.3) H 11/04/18 05:33 Eos % (Auto) 4.3 % (0.0-4.3) 11/04/18 05:33 Baso % (Auto) 0.6 % (0.0-1.8) 11/04/18 05:33 Lymph # 1.5 K/mm3 (1.2-5.4) 11/04/18 05:33 [place] # 0.3 K/mm3 (0.0-0.8) 11/04/18 05:33 Eos # 0.2 K/mm3 (0.0-0.4) 11/04/18 05:33 Baso # 0.0 K/mm3 (0.0-0.1) 11/04/18 05:33 Seg Neutrophils % 48.1 % (40.0-70.0) 11/04/18 05:33 Seg Neutrophils # 1.9 K/mm3 (1.8-7.7) 11/04/18 05:33 PT 15.8 Sec. (12.2-14.9) H 11/03/18 02:02 INR 1.18 (0.87-1.13) H 11/03/18 02:02 APTT 30.1 Sec. (24.2-36.6) 11/03/18 02:02 Sodium 143 mmol/L (137-145) D 11/04/18 05:33 Potassium 3.7 mmol/L (3.6-5.0) 11/04/18 05:33 Chloride 92.0 mmol/L (98-107) L 11/04/18 05:33 Carbon Dioxide 38 mmol/L (22-30) H D 11/04/18 05:33 Anion Gap 17 mmol/L 11/04/18 05:33 BUN 14 mg/dL (7-17) 11/04/18 05:33 Creatinine 0.9 mg/dL (0.7-1.2) 11/04/18 05:33 Estimated GFR > 60 ml/min 11/04/18 05:33 BUN/Creatinine Ratio 16 % 11/04/18 05:33 Glucose 90 mg/dL (65-100) 11/04/18 05:33 Calcium 8.8 mg/dL (8.4-10.2) 11/04/18 05:33 Magnesium 1.70 mg/dL (1.7-2.3) 11/03/18 02:02 Total Bilirubin 1.30 mg/dL (0.1-1.2) H 11/02/18 21:55 AST 24 units/L (5-40) 11/02/18 21:55 ALT 8 units/L (7-56) 11/02/18 21:55 Alkaline Phosphatase 81 units/L (35-129) 11/02/18 21:55 Total Creatine Kinase 126 units/L (30-135) 11/03/18 07:54 CK-MB (CK-2) 4.4 ng/mL (0.0-4.0) H 11/03/18 07:54 CK-MB (CK-2) Rel Index 3.4 (0-4) 11/03/18 07:54 Troponin T 0.022 ng/mL (0.00-0.029) 11/03/18 07:54 NT-Pro-B Natriuret Pep 4998 pg/mL (0-900) H 11/02/18 21:55 Total Protein 6.2 g/dL (6.3-8.2) L 11/02/18 21:55 Albumin 2.5 g/dL (3.9-5) L 11/02/18 21:55 Albumin/Globulin Ratio 0.7 % 11/02/18 21:55 Triglycerides 146 mg/dL (2-149) 11/03/18 02:02 Cholesterol 131 mg/dL (50-199) 11/03/18 02:02 LDL Cholesterol Direct 75 mg/dL (50-130) 11/03/18 02:02 HDL Cholesterol 43 mg/dL (40-59) 11/03/18 02:02 Cholesterol/HDL Ratio 3.04 % 11/03/18 02:02 TSH 39.210 mlU/mL (0.270-4.200) H 11/03/18 12:34 Free T4 1.19 ng/dL (0.76-1.46) 11/03/18 12:34 Active Medications - Current Medications Current Medications: Generic Name Dose Route Start Last Admin Trade Name Freq PRN Reason Stop Dose Admin Acetaminophen 650 mg 11/03/18 01:53 Tylenol PO Q4H PRN Pain MILD(1-3)/Fever >100.5/JEFFERS Albuterol 2.5 mg 11/03/18 02:12 Proventil IH Q4HRT PRN Shortness Of Breath Albuterol 2.5 mg 11/03/18 10:00 11/04/18 07:55 Proventil IH 2.5 mg DAILY ELÍAS Administration Aspirin 81 mg 11/03/18 10:00 11/04/18 09:13 Baby Aspirin PO 81 mg QDAY ELÍAS Administration Carvedilol 12.5 mg 11/03/18 10:00 11/04/18 09:14 Coreg PO 12.5 mg Q12HR ELÍAS Administration Furosemide 40 mg 11/03/18 06:00 11/04/18 05:34 Lasix IV 40 mg BID@0600,1800 ELÍAS Administration Hydralazine HCl 10 mg 11/03/18 08:49 Apresoline IV Q4H PRN Blood Pressure Levothyroxine Sodium 150 mcg 11/03/18 06:00 11/04/18 05:33 Synthroid PO 150 mcg QAM@0600 ELÍAS Administration Lisinopril 40 mg 11/03/18 10:00 11/04/18 09:14 Zestril PO 40 mg DAILY ELÍAS Administration Ondansetron HCl 4 mg 11/03/18 01:53 Zofran IV Q8H PRN Nausea And Vomiting Potassium Chloride 40 meq 11/03/18 12:00 11/04/18 09:15 K-Dur PO 40 meq DAILY ELÍAS Administration Pravastatin Sodium 80 mg 11/03/18 22:00 11/03/18 22:01 Pravachol PO 80 mg QHS ELÍAS Administration Rivaroxaban 15 mg 11/03/18 10:00 11/04/18 09:14 Xarelto PO 15 mg DAILY ELÍAS Administration Protocol Sodium Chloride 10 ml 11/03/18 10:00 11/04/18 09:16 Sodium Chloride Flush Syringe 10 Ml IV 10 ml BID ELÍAS Administration Sodium Chloride 10 ml 11/03/18 01:53 Sodium Chloride Flush Syringe 10 Ml IV PRN PRN LINE FLUSH Spironolactone 25 mg 11/03/18 11:00 11/04/18 09:13 Aldactone PO 25 mg QDAY ELÍAS Administration
[2018-11-04] MEDS: APRESOLINE IV PRN ×2 (13:25→17:39)
[2018-11-04] MEDS ORDERED: APRESOLINE PO ONE (17:40)
[2018-11-04] MEDS: PRAVACHOL PO SCH (22:08)
[2018-11-04] MEDS: APRESOLINE PO SCH (22:09)
[2018-11-05] MEDS: LASIX IV SCH (05:43)
[2018-11-05] MEDS: APRESOLINE PO SCH (05:44)
[2018-11-05] MEDS: SYNTHROID PO SCH (05:44)
[2018-11-05 06:38] LABS: Basophils % (Auto) 0.9 % (0.0-1.8); Eosinophils # (Auto) 0.2 K/mm3 (0.0-0.4); Eosinophils % (Auto) 4.2 % (0.0-4.3); Hematocrit 49.2 % (30.3-42.9); Hemoglobin 15.7 gm/dl (10.1-14.3); Lymphocytes # (Auto) 1.1 K/mm3 (1.2-5.4); Lymphocytes % (Auto) 30.7 % (13.4-35.0); Mean Corpuscular HGB Conc 32 % (30-34); Mean Corpuscular Volume 99 fl (79-97); Monocytes # (Auto) 0.4 K/mm3 (0.0-0.8); Monocytes % (Auto) 10.8 % (0.0-7.3); Platelet Count 118 K/mm3 (140-440); Red Cell Distribution Width 15.5 % (13.2-15.2)
[2018-11-05 06:55] LABS: BUN/Creatinine Ratio 16; Blood Urea Nitrogen 14 mg/dL (7-17); Calcium 8.8 mg/dL (8.4-10.2); Hemolysis Index 14
[2018-11-05] MEDS: PROVENTIL IH SCH (09:06)
[2018-11-05] MEDS: BABY ASPIRIN PO SCH (10:23)
[2018-11-05] MEDS: ZESTRIL PO SCH (10:23)
[2018-11-05] MEDS: XARELTO PO SCH (10:24)
[2018-11-05] MEDS: K-DUR PO SCH (10:24)
[2018-11-05] MEDS: ALDACTONE PO SCH (10:24)
[2018-11-05] MEDS: COREG PO SCH (10:24)
[2018-11-05] MEDS: SODIUM CHLORIDE FLUSH SYRINGE 10 ML IV SCH (10:26)
--- NOTE | 2018-11-05 10:45 | Progress Note ---
Assessment and Plan Acute systolic heart failure s/t noncompliance with dietary indiscretions Nonischemic cardiomyopathy pt reports a [facility] 2018 while living in [facility], that did not require coronary intervention Chronic Afib on xarelto for oral anticoagulation Hx of COPD Hypertension Tobacco abuse paroxysmal NSVT on telemetry An echocardiogram this admission reports a dilated left and right atria with moderate to severe TR and pulmonary hypertension, RVSP of 52 mmHg. Left ventricular function decreased, EF 30-35%. Recommendations: Sodium/fluid restrictions. Daily weight. Recommended LifeVest monitoring on discharge was refused by the patient. Continue medical therapy for systolic heart failure and permanent atrial fibrillation. Subjective Date of service: 11/05/18 Interval history: Multiple episodes of NSVT seen on telemetry overnight. Patient remained asymptomatic. Patient reports her breathing is better. Objective Vital Signs Temp Pulse Pulse Resp Resp BP BP 11/05/18 10:24 79 165/97 11/05/18 10:23 79 165/97 11/05/18 10:00 11/05/18 09:15 70 18 11/05/18 09:06 68 18 11/05/18 08:55 16 11/05/18 07:54 98.3 F 67 20 165/97 11/05/18 05:44 80 156/103 11/05/18 04:30 77 11/05/18 04:00 98.2 F 76 18 156/103 11/05/18 00:04 98.3 F 73 18 144/96 11/04/18 22:10 75 157/102 11/04/18 22:09 75 157/102 11/04/18 20:22 79 18 11/04/18 20:13 74 17 11/04/18 20:00 98.3 F 83 18 157/102 11/04/18 19:52 78 11/04/18 19:41 82 179/114 11/04/18 17:39 82 179/114 11/04/18 16:41 82 179/114 11/04/18 16:40 194/116 11/04/18 16:36 97.8 F 11/04/18 16:35 66 18 188/116 11/04/18 13:25 62 165/107 11/04/18 12:30 73 20 116/58 11/04/18 12:25 97.5 F L 62 18 165/107 11/04/18 12:24 72 175/111 11/04/18 12:00 61 Pulse Ox 11/05/18 10:24 11/05/18 10:23 11/05/18 10:00 96 11/05/18 09:15 11/05/18 09:06 11/05/18 08:55 11/05/18 07:54 89 11/05/18 05:44 11/05/18 04:30 11/05/18 04:00 86 11/05/18 00:04 84 11/04/18 22:10 11/04/18 22:09 11/04/18 20:22 11/04/18 20:13 96 11/04/18 20:00 98 11/04/18 19:52 11/04/18 19:41 11/04/18 17:39 11/04/18 16:41 11/04/18 16:40 11/04/18 16:36 11/04/18 16:35 93 11/04/18 13:25 11/04/18 12:30 99 11/04/18 12:25 94 11/04/18 12:24 82 L 11/04/18 12:00 - Physical Examination General: No Apparent Distress HEENT: Positive: PERRL Neck: Positive: trachea midline Cardiac: Positive: irregularly irregular Lungs: Positive: Decreased Breath Sounds Neuro: Positive: Grossly Intact Extremities: Present: +1 Edema - Labs and Meds CBC 11/05/18 Range/Units 06:03 WBC 3.7 L (4.5-11.0) K/mm3 RBC 5.00 (3.65-5.03) M/mm3 Hgb 15.7 H (10.1-14.3) gm/dl Hct 49.2 H (30.3-42.9) % Plt Count 118 L (140-440) K/mm3 Lymph # 1.1 L (1.2-5.4) K/mm3 [place] # 0.4 (0.0-0.8) K/mm3 Eos # 0.2 (0.0-0.4) K/mm3 Baso # 0.0 (0.0-0.1) K/mm3 Comprehensive Metabolic Panel 11/05/18 Range/Units 06:03 Sodium 142 (137-145) mmol/L Potassium 3.8 (3.6-5.0) mmol/L Chloride 93.4 L (98-107) mmol/L Carbon Dioxide 40 H (22-30) mmol/L BUN 14 (7-17) mg/dL Creatinine 0.9 (0.7-1.2) mg/dL Glucose 117 H (65-100) mg/dL Calcium 8.8 (8.4-10.2) mg/dL - Imaging and Cardiology EKG: image reviewed
--- NOTE | 2018-11-05 11:52 | Discharge Summary ---
Providers - Providers Date of Admission: 11/03/18 01:53 Date of discharge: 11/05/18 Attending physician: BEATRIZ CLEARY 11/03/18 01:07 Consult to Physician [CONS] Urgent Comment: Dr. Noe spoke with Dr. Meier @ [phone] Consulting Provider: ROSAURA DOVE Physician Instructions: Reason For Exam: chf Primary care physician: [facility] Hospitalization Condition: Stable Hospital course: Ms. Barrera is 53 year old -[place] woman with history of systolic heart failure, nonischemic cardiomyopathy, hypertension, COPD, hypothyroidism, A. fib controlled on Xarelto, and hyperlipidemia who presented to [facility] on 11/02 with c/o shortness of breath, orthopnea, lower extremity edema 2 days. She is followed on a routine basis by Dr Rosaura Dove with [facility]. Her most recent echocardiogram done within the last year reports ejection fraction 40-45%. She was admitted to the Telemetry floor. Acute on chronic exacerbation of systolic heart failure Continue diuresis with IV Lasix 40mg BID Start Potassium replace 40Meq daily Monitor electrolytes Echo- pending Cardiology following Follows Dr Rosaura Dove with [facility] as outpatient Nonischemic cardiomyopathy pt reports a [facility] 2018 while living in [facility]; no coronary intervention was required Follows Dr Rosaura Dove with [facility] as outpatient Atrial fibrillation Rate controlled on Xarelto Follows Dr Rosaura Dove with [facility] as outpatient Hypertension Monitor BP On Coreg 12.5 BID, and Aldactone 25mg daily Hx COPD Albuterol nebs prn Hypothyroidism On Synthroid 150mcg daily TSH and Free T4- pending Tobacco abuse Continue to encourage cessation On nicotine patch DVT PPX AC Xarelto Disposition: - TO HOME OR SELFCARE Time spent for discharge: 36 min Core Measure Documentation - Palliative Care Palliative Care/ Comfort Measures: Not Applicable - Core Measures Any of the following diagnoses?: none - VTE Discharge Requirements Deep Vein Thrombosis/Pulmonary Embolism Present on Admission: No Has pt received <5 days of overlap therapy or INR<2.0: No Anticoagulant overlap therapy prescribed at discharge: No Contraindication No Overlap Therapy order at DC: Not Indicated Exam - Physical Exam Narrative exam: GEN: WDWN, NAD, Awake, Alert, Orientated HEENT: NCAT, EOMI, PERRL, OP Clear NECK: supple, no adenopathy, no thyromegaly, no JVD CVS/HEART: RRR, normal S1S2, pulses present bilaterally CHEST/LUNGS: CTA B, Symmetrical chest expansion, good air entry bilaterally GI/Abdomen: soft, NTND, good bowel sounds, no guarding or rebound /Bladder: no suprapubic tenderness, no CVA or paraspinal tenderness EXT/Skin: no c/c/e, no obvious rash MSK: FROM x 4 Neuro: CN 2-12 grossly intact, no new focal deficits Psych: calm - Constitutional Vitals: Temp Pulse Resp BP Pulse Ox 98.3 F 79 18 165/97 96 11/05/18 07:54 11/05/18 10:24 11/05/18 09:15 11/05/18 10:24 11/05/18 10:00 Plan Activity: other (no strenous activity unless cleared by Cardiology) Diet: low salt Follow up with: PRIMARY CAREMD [Primary Care Provider] - 3-5 Days ROSAURA DOVE MD [Staff Physician] - 7 Days Prescriptions: Spironolactone [Aldactone] 25 mg PO QDAY #30 tablet Furosemide [Lasix TAB] 40 mg PO BID #60 tablet ALBUTEROL Inhaler (OR & NICU) [ProAir HFA Inhaler] 4 puff IH QID PRN #1 inhalation PRN Reason: Shortness Of Breath ALBUTEROL NEB's [Proventil 0.083% NEBS] 2.5 mg IH Q4HRT PRN #30 nebu PRN Reason: Shortness Of Breath Levothyroxine [Synthroid] 150 mcg PO QAM #30 tablet Rivaroxaban [Xarelto] 15 mg PO DAILY #30 tablet
[2018-11-05 12:38] VITALS: BP 161/99
== END 2018-11-05 14:27 | disposition home or self-care (01) | DRG 291 ==
LOC: ED 21:27 → 4A 11-03 01:53
PROVIDERS: ADMIT Internal Medicine; ATTEND Internal Medicine
DX: I11.0 Hypertensive heart disease with heart failure (principal); E43 Unspecified severe protein-calorie malnutrition; I50.43 Acute on chronic combined systolic (congestive) and diastolic (congestive) heart failure; I42.9 Cardiomyopathy, unspecified; J44.9 Chronic obstructive pulmonary disease, unspecified; E21.3 Hyperparathyroidism, unspecified; F17.210 Nicotine dependence, cigarettes, uncomplicated; E87.6 Hypokalemia; E03.9 Hypothyroidism, unspecified; E78.5 Hyperlipidemia, unspecified; Z79.01 Long term (current) use of anticoagulants; Z99.81 Dependence on supplemental oxygen
CPT/HCPCS: 36415; 71046; 80048; 80053; 80061; 82550; 82553; 83735; 83880; 84439; 84443; 84484; 85025; 85610; 85730; 87116; 93005; 93010; 93306; 94640; 94760; 99406; G0378; A9270-GY; J0360; J1940

== ENCOUNTER 2019-02-09 00:54 | Emergency (ER) | payer MEDICAID ==
[~2019-02-09 00:54] MED LIST: ADRENALIN ONE
--- NOTE | 2019-02-09 01:15 | Emergency Department Report ---
HPI - General Time Seen by Provider: 02/09/19 01:06 - HPI HPI: Room 21 The patient is a 53-year-old female presenting with a chief complaint cardiac arrest. Per EMS the patient's daughter was speaking to her on the phone 40 minutes prior to EMS arrival. The daughter went over to check on the patient and felt her unresponsive. EMS was called. EMS states they arrived on scene is 00:155 the patient in asystole. ACLS protocols were continued and the patient was intubated per EMS the patient went into V. fib 2 was defibrillated twice. Arrival to the ED the patient was found to be in asystole. ACLS protocols were continued with eventual transient return of spontaneous circulation. The patient reentered asystole without return of spontaneous circulation ED Past Medical Hx - Past Medical History Hx Hypertension: Yes Hx Congestive Heart Failure: Yes Hx COPD: Yes Additional medical history: hyperthyroidism. afib - Surgical History Additional Surgical History: Pericardial window 2003 - Social History Smoking Status: Unknown if ever smoked - Medications Home Medications: Home Medications Medication Instructions Recorded Confirmed Last Taken Type Carvedilol [Coreg] 12.5 mg PO Q12HR #60 tablet 01/14/18 11/03/18 Unknown Rx Lisinopril [Zestril] 40 mg PO DAILY #30 tablet 01/14/18 11/03/18 Unknown Rx Potassium Chloride 10 meq PO QDAY #30 capsule.er 01/14/18 11/03/18 Unknown Rx Simvastatin [Zocor] 40 mg PO DAILY #30 tablet 01/14/18 11/03/18 Unknown Rx ALBUTEROL Inhaler (OR & NICU) 4 puff IH QID PRN #1 inhalation 11/05/18 Unknown Rx [ProAir HFA Inhaler] ALBUTEROL NEB's [Proventil 0.083% 2.5 mg IH Q4HRT PRN #30 nebu 11/05/18 Unknown Rx NEBS] Acetaminophen [Acetaminophen TAB] 650 mg PO Q4H PRN #15 tablet 11/05/18 Unknown Rx Aspirin [Aspirin BABY CHEW TAB] 81 mg PO QDAY #20 tab.chew 11/05/18 Unknown Rx Furosemide [Lasix TAB] 40 mg PO BID #60 tablet 11/05/18 Unknown Rx Levothyroxine [Synthroid] 150 mcg PO QAM #30 tablet 11/05/18 Unknown Rx Potassium Chloride [K-Dur] 40 meq PO DAILY #30 tablet 11/05/18 Unknown Rx Rivaroxaban [Xarelto] 15 mg PO DAILY #30 tablet 11/05/18 Unknown Rx Spironolactone [Aldactone] 25 mg PO QDAY #30 tablet 11/05/18 Unknown Rx hydrALAZINE [Apresoline TAB] 25 mg PO Q8HR #30 tablet 11/05/18 Unknown Rx ED Review of Systems ROS: Stated complaint: CARDIAC ARREST Other details as noted in HPI Comment: Unobtainable due to pts medical conditions Physical Exam - Physical Exam Physical Exam: GENERAL: The patient is well-developed well-nourished female lying on stretcher receiving chest compressions from EMS and being bagged via ET tube. [] HEENT: Normocephalic. Atraumatic. NECK: Trachea midline CHEST/LUNGS: No spontaneous respirations. Breath sounds equal bilaterally with bagging via ET tube HEART/CARDIOVASCULAR: No heart sounds. Asystole on monitor ABDOMEN: There is no abdominal distention. SKIN: There is no diaphoresis. NEURO: GCS 3T MUSCULOSKELETAL: There is no evidence of acute injury. ED Medical Decision Making - EKG Data -: EKG Interpreted by Me Rate: bradycardia - EKG Data When compared to previous EKG there are: previous EKG unavailable Interpretation: other (idioventricular rhythm) - Differential Diagnosis cardiac arrest Critical care attestation.: If time is entered above; I have spent that time in minutes in the direct care of this critically ill patient, excluding procedure time. ED Disposition Clinical Impression: Cardiac arrest Disposition: DC-20 Is pt being admited?: No Does the pt Need Aspirin: No Condition: Poor Time of Disposition: 01:15 (patient )
[2019-02-09 01:19] LABS: Mean Corpuscular HGB Conc 30 % (30-34); Mean Corpuscular Volume 105 fl (79-97); Red Blood Count 4.35 M/mm3 (3.65-5.03); Red Cell Distribution Width 18.6 % (13.2-15.2)
[2019-02-09 01:21] LABS: Hematocrit 45.7 % (30.3-42.9); Hemoglobin 13.9 gm/dl (10.1-14.3); Platelet Count 68 K/mm3 (140-440)
[2019-02-09 01:58] LABS: RBC Morphology Normal; Total Cells Counted 100
[2019-02-09] MEDS ORDERED: DECADRON ONE (04:14)
[2019-02-09] MEDS ORDERED: BENADRYL ONE (04:14)
== END 2019-02-09 05:30 ==
LOC: ED 00:54
DX: I46.9 Cardiac arrest, cause unspecified (principal); I11.0 Hypertensive heart disease with heart failure; I50.9 Heart failure, unspecified; J44.9 Chronic obstructive pulmonary disease, unspecified; E05.90 Thyrotoxicosis, unspecified without thyrotoxic crisis or storm; I48.91 Unspecified atrial fibrillation; Z98.890 Other specified postprocedural states; Z79.899 Other long term (current) drug therapy
CPT/HCPCS: 36415; 85007; 85025; 92950; 93005; 93010; 99285; J0171; J1100; J1200